=== PATIENT | female | born 1970 ===

== ENCOUNTER 2017-04-17 18:35 | Emergency (ER) | payer SELFPAY ==
[~2017-04-17] VITALS: Ht 163 cm; Wt 56.0 kg
[2017-04-17 18:37] VITALS: TEMP 97.9
[2017-04-17 19:36] LABS: BASO % 0.6 % (0.0-2.0); EOS # 0.1 (0.0-0.7); EOS % 1.9 % (0-4.0); GRAN # 2.9 (1.4-6.5); GRAN % 61.8 % (42.2-75.2); LYMPH # 1.4 (1.2-3.4); LYMPH % 29.2 % (20.0-51.0); MEAN CELL VOLUME 87 fl (80.0-100.0); MEAN CORPUSCULAR HGB CONC 33 g/dl (33.0-37.0); MEAN PLATELET VOLUME 11.3 fl (7.4-10.4); MONO # 0.3 (0.1-0.6); MONO % 6.5 % (1.7-9.3); PLATELET COUNT 200 K/mm3 (130-400); RED BLOOD COUNT 3.74 M/mm3 (4.10-5.30); REDCELL DISTRIBUTION WIDTH-CV 15.5 % (11.5-14.5); WHITE BLOOD COUNT 4.8 K/mm3 (4.8-10.8)
[2017-04-17 19:37] LABS: HEMATOCRIT 32.6 % (37.0-47.0); HEMOGLOBIN 10.7 g/dl (12.5-16.0); MEAN CORPUSCULAR HEMOGLOBIN 29 pg (27.0-31.0)
[2017-04-17 19:44] LABS: PARTIAL THROMBOPLASTIN TIME 32.4 SECONDS (26.0-37.0)
[2017-04-17 19:49] LABS: CREATININE, serum 0.7 mg/dL (0.52-1.25)
[2017-04-17 19:54] LABS: INR 0.9 (0.8-3.0); PROTHROMBIN TIME 10.1 SECONDS (9.7-12.8)
[2017-04-17 21:15] VITALS: BP 151/84; PULSE 68
== END 2017-04-17 21:15 | disposition home or self-care (01) ==
LOC: COL.ER 18:35
PROVIDERS: Emergency Medicine
DX: M79.661 Pain in right lower leg (principal)